=== PATIENT | female | born 1995 | race Hispanic/Latino ===

== ENCOUNTER 2016-03-01 07:30 | Inpatient (IN) | payer OTHER ==
[2016-03-01] VITALS (8 sets, daily range): BP systolic 113–143; RESP 18–20; TEMP 98.3–100.1; BMI 33.1
[~2016-03-01] VITALS: Ht 160 cm; Wt 84.8 kg
[2016-03-01] MEDS: LACT RINGERS 1,000 ML IV SCH ×3 (09:00→15:45)
[2016-03-01] MEDS ORDERED: PROMETHAZINE 25 MG/ML VIAL IV PRN (09:05)
[2016-03-01] MEDS ORDERED: OXYTOCIN 15 UNITS/250 ML NS 250 ML IV SCH ×3 (09:05→19:45)
[2016-03-01] MEDS ORDERED: ONDANSETRON 4 MG VIAL IV PRN (09:05)
[2016-03-01] MEDS ORDERED: FAMOTIDINE 20 MG INJ IV PRN (09:05)
[2016-03-01] MEDS ORDERED: LIDOCAINE 1% BUFFERED 1 ML SYR INTRADERM PRN (09:05)
[2016-03-01] MEDS ORDERED: FAMOTIDINE 20 MG TAB PO PRN (09:05)
[2016-03-01] MEDS ORDERED: MORPHINE 5 MG/1 ML VIAL IV PRN (09:05)
[2016-03-01] MEDS ORDERED: ALU/MAG/SIM 30 ML UDC PO PRN (09:05)
[2016-03-01] MEDS ORDERED: TERBUTALINE 1 MG/ML VIAL SUBQ PRN (09:05)
[2016-03-01] MEDS ORDERED: ACETAMINOPHEN 325 MG TAB PO PRN (09:05)
[2016-03-01] MEDS ORDERED: CEFAZOLIN (LD/OB) 100 ML IV PRN (09:05)
[2016-03-01] MEDS ORDERED: METOCLOPRAMIDE 10 MG/2 ML VIAL IV PUSH PRN (09:05)
[2016-03-01] MEDS ORDERED: LIDOCAINE 1% 30 ML PF INFILTRATE ONE (09:05)
[2016-03-01] MEDS ORDERED: FENTANYL 100 MCG/2 ML AMP ONE (14:06)
[2016-03-01] MEDS ORDERED: ROPIV/FENT 0.2%-2MCG/ML 100 ML EPIDURAL ONE (14:06)
[2016-03-01] MEDS ORDERED: FENTANYL 100 MCG/2 ML AMP EPIDURAL ONE (14:40)
[2016-03-01] MEDS ORDERED: SODIUM CHLORIDE 0.9% 500 ML IV PRN (14:40)
[2016-03-01] MEDS ORDERED: ROPIV/FENT 0.2%-2MCG/ML 100 ML EPIDURAL SCH (14:40)
[2016-03-01] MEDS ORDERED: LACT RINGERS 500 ML IV PRN (14:40)
[2016-03-01] MEDS ORDERED: LACT RINGERS 500 ML IV ONE (14:40)
[2016-03-01] MEDS ORDERED: TDaP 0.5 ML VIAL IM.VACC ONE (19:45)
[2016-03-01] MEDS ORDERED: DERMOPLAST SPRAY TOPICAL PRN (19:45)
[2016-03-01] MEDS ORDERED: MEASLES,MUMPS,RUBELLA VAC SUBQ.VACC ONE (19:45)
[2016-03-01] MEDS ORDERED: MAG HYDROX 30 ML UDC PO PRN (19:45)
[2016-03-01] MEDS ORDERED: ZOLPIDEM 5 MG TAB PO PRN (19:45)
[2016-03-01] MEDS ORDERED: **ONLY ANESTEHSIA MAY ORDER OPIATES WHILE ON EPIDURAL XX SCH (20:00)
[2016-03-01] MEDS: ASTRINGENT MED PADS 40'S TOPICAL PRN (21:44)
[2016-03-01] MEDS: Ibuprofen 600 MG TAB PO SCH (23:17)
[2016-03-02 01:25] VITALS: BP_SYST 132; RESP 18; TEMP 98.5
[2016-03-02] MEDS: Ibuprofen 600 MG TAB PO SCH ×3 (05:16→17:57)
[2016-03-02 05:43] VITALS: BP_SYST 145; RESP 20; TEMP 99
[2016-03-02] MEDS: DOCUSATE SOD 100 MG CAP PO SCH (08:49)
[2016-03-02 09:26] VITALS: BP_SYST 133; RESP 16; TEMP 98.3
[2016-03-02 13:50] VITALS: BP_SYST 132; RESP 16; TEMP 98.4
[2016-03-02 17:33] VITALS: BP_SYST 119; RESP 18; TEMP 97.5
[2016-03-03] MEDS: Ibuprofen 600 MG TAB PO SCH ×2 (00:14→05:43)
[2016-03-03 05:41] VITALS: BP_SYST 121; RESP 16; TEMP 97.7
[2016-03-03] MEDS: DOCUSATE SOD 100 MG CAP PO SCH (08:44)
[2016-03-03 09:27] VITALS: BP_SYST 128; RESP 16; TEMP 97.3
[2016-03-03] MEDS: ASTRINGENT MED PADS 40'S TOPICAL PRN (10:03)
[2016-03-03 10:09] VITALS: BP_SYST 128; RESP 16; TEMP 97.3
== END 2016-03-03 11:20 | disposition home or self-care (01) | DRG 775 ==
LOC: LD 08:09 → OB 22:00
PROVIDERS: ADMIT Obstetrics & Gynecology; ATTEND Obstetrics & Gynecology
PROC: 10E0XZZ Delivery of Products of Conception, External Approach (ICD-10-PCS; principal; 2016-03-01)
PROC: 3E033VJ Introduction of Other Hormone into Peripheral Vein, Percutaneous Approach (ICD-10-PCS; 2016-03-01)
PROC: 10907ZC Drainage of Amniotic Fluid, Therapeutic from Products of Conception, Via Natural or Artificial Opening (ICD-10-PCS; 2016-03-01)
PROC: 0HQ9XZZ Repair Perineum Skin, External Approach (ICD-10-PCS; 2016-03-01)
CPT/HCPCS: 80053; 85025; 86850; 86900; 86901

== ENCOUNTER 2016-03-23 23:16 | Emergency (ER) | payer OTHER ==
[2016-03-24] MEDS ORDERED: SODIUM CHLORIDE 0.9% 100 ML IV ONE (02:21)
[2016-03-24] MEDS ORDERED: CEFTRIAXONE 1 GM VIAL ONE (02:21)
[2016-03-24] MEDS ORDERED: DILAUDID 1 MG/ML AMP ONE (03:04)
== END 2016-03-24 03:56 | disposition home or self-care (01) ==
LOC: ER 23:16
DX: O86.21 Infection of kidney following delivery (principal); M54.6 Pain in thoracic spine
CPT/HCPCS: 36415; 71020; 80053; 81001; 83690; 85025; 87088; 96365; 96375